=== PATIENT | male | born 1955 | race Caucasian/White ===

== ENCOUNTER 2017-05-05 11:19 | Emergency (ER) | payer OTHER, MEDICARE ==
[~2017-05-05] VITALS: Ht 175.3 cm; Wt 81.6 kg
[~2017-05-05 11:19] MED LIST: AMITRIPTYLINE50 MG PO; AMOXICILLIN500 MG PO; AUGMENTIN 875-1 EACH PO; BACTRIM DS 8001 TAB PO; BACTRIM DS TAB1 EACH PO; LIORESAL 10MG T10 MG PO; OXYCODONE HYDRO10 M1 PO; OXYCONTIN10 MG PO; TEMAZEPAM15 MG PO
--- NOTE | 2017-05-05 11:53 | ED GI/GU/ABDOMINAL COMPLAINT ---
History of Present Illness General Chief Complaint: General Adult Stated Complaint: BIBA FOR DIARRHEA, FLU-LIKE SYMPTOMS Source: patient, family, old records, EMS Exam Limitations: no limitations Allergies Coded Allergies: lactose (DIARRHEA 05/05/17) Reconcile Medications Oxycodone HCl (Oxycontin) 10 MG TAB.ER.12H 1 TAB PO BID PAIN (Reported) Oxycodone HCl 10 MG TABLET 0.5-1 TAB PO Q4-6 PRN PRN PAIN (Reported) Temazepam 15 MG CAPSULE 1 CAP PO QPM RESTLESS LEGS (Reported) Tizanidine HCl 4 MG TABLET 1-2 TAB PO QPM PAIN (Reported) Triage Note: 62 YEAR OLD MALE FROM HOME C/O DIARRHEA X1 WEEK AND GENERALIZED WEAKNESS THAT CAME ABOUT SUDDENLY THIS MORNING. PT REPORTS PAST MEDICAL HISTORY OF CROH[place] AND CHRONIC PAIN WITH MORPHINE PAIN PUMP D/T SEVERE OSTEOARTHRITIS. PT ARRIVES TO ED ALERT AND ORIENTED X3, CLEAR SPEECH, SHIVERING. DENIES CP/SOB. 20 GAUGE TO RFA PLACED BY MEDIC RUNNING NS ON ARRIVAL. Triage Nurses Notes Reviewed? yes Onset: Abrupt Duration: week(s):, constant, getting worse Timing: recent history Quality/Severity: cramping, moderate, sharpness Location: generalized abdomen Radiation: no radiation Activities at Onset: none No Modifying Factors: none HPI: 62-year-old male comes into emergency room for further evaluation of generalized abdominal pain as well as increase in mucus E bowel movements. Patient reports that he has a history of IBS. He's been experiencing abdominal pain symptoms for about 4 weeks. He denies any fever or vomiting. Reports that his bowel movements have been persistently mucousy and loose. Denies any blood. Denies any recent antibiotic use. No recent hospitalizations. Feels different from his IBS. Patient has a pain pump and on the right side due to chronic back aissatou and is seeN by pain management. He denies any changes in regards to his chronic pain. His pain medication has not been decreased recently. He also reported some associated dizziness with the symptoms. Denies any chest pain or shortness of breath. (Cecilio Monzon) Vital Signs & Intake/Output Vital Signs & Intake/Output Vital Signs Date Time Temp Pulse Resp B/P B/P Pulse O2 O2 Flow FiO2 Mean Ox Delivery Rate 05/05 1333 99.2 55 18 164/77 96 Room Air 05/05 1128 97.0 51 18 170/84 99 Room Air (Anitra THAPA,Saumya) Past History Travel History Traveled to [place] past 21 day No Medical History Any Pertinent Medical History? see below for history Neurological: NONE EENT: NONE Cardiovascular: NONE Respiratory: NONE Gastrointestinal: NONE Hepatic: NONE Renal: NONE Musculoskeletal: osteoarthritis Psychiatric: NONE Endocrine: NONE Blood Disorders: NONE Cancer(s): NONE INFORMATION SECURITY ARCHITECT/Reproductive: NONE Tetanus Vaccine: 03/15/15 Surgical History Surgical History: pain pump Psychosocial History What is your primary language Occitan Tobacco Use: Never used Family History Hx Contributory? No (Rishabh LEIVA,Cecilio) Review of Systems Review of Systems Constitutional: Reports: no symptoms. EENTM: Reports: no symptoms. Respiratory: Reports: no symptoms. Cardiovascular: Reports: no symptoms. GI: Reports: see HPI. Genitourinary: Reports: no symptoms. Musculoskeletal: Reports: no symptoms. Skin: Reports: no symptoms. Neurological/Psychological: Reports: no symptoms. Hematologic/Endocrine: Reports: no symptoms. Immunologic/Allergic: Reports: no symptoms. All Other Systems: Reviewed and Negative (Cecilio Monzon) Physical Exam Physical Exam General Appearance: alert, awake, mild distress Head: atraumatic, normal appearance Eyes: Bilateral: normal appearance. Ears, Nose, Throat, Mouth: hearing grossly normal, moist mucous membrane Neck: normal inspection Respiratory: normal breath sounds, no respiratory distress Cardiovascular: regular rate/rhythm Gastrointestinal: normal bowel sounds, soft, tenderness Back: decreased range of motion Extremities: limited range of motion Neurologic/Psych: awake, alert, oriented x 3 Skin: intact, normal color Core Measures ACS in differential dx? No Sepsis Present: No Sepsis Focused Exam Completed? No (Cecilio Monzon) Progress Differential Diagnosis: appendicitis, biliary colic, bowel obstruction, diverticulitis, gastritis, ischemic bowel, peptic ulcer, SBO, UTI/pyelo, c diff Diagnostic Imaging: Viewed by Me: CT Scan. Discussed w/RAD: CT Scan. Radiology Impression: PATIENT: JOSE CRUZ STOKES PRESENT AGE: 62 PATIENT ACCOUNT NO: [id number] : 54 LOCATION: [facility] ORDERING PHYSICIAN: Cecilio LEIVA SERVICE DATE: 05/05/17 EXAM TYPE : CAT - CT ABD & PELVIS W IV CONTRAST EXAMINATION: CT ABDOMEN AND PELVIS WITH CONTRAST CLINICAL INFORMATION: Abdominal pain COMPARISON: None TECHNIQUE: Multidetector volumetric imaging was performed of the abdomen and pelvis following IV administration of 95 mL of Optiray 320 intravenous contrast. Sagittal and coronal reformatted images were obtained on the technologist's workstation. DLP: 354.08 mGy-cm FINDINGS: LUNG BASES: The visualized lung bases are unremarkable. LIVER, GALLBLADDER, AND BILIARY TREE: The liver is normal in size, shape, and attenuation. No focal hepatic lesion or biliary ductal dilatation is present. Gallbladder is unremarkable. No edema around the gallbladder. No calcified gallstones. The extra hepatic CBD is mildly dilated to a diameter of 0.9 cm at the becky hepatis. No calcified stone in the bile ducts. PANCREAS: Pancreas is atrophic. No inflammation or mass of the pancreas. SPLEEN: Unremarkable. ADRENAL GLANDS: Unremarkable. KIDNEYS AND URETERS: The kidneys are normal in size, shape, and attenuation. No hydronephrosis, hydroureter, or calculi seen. No perinephric stranding. BLADDER: Unremarkable. GASTROINTESTINAL TRACT: The small and large bowel are unremarkable. The appendix is unremarkable. ABDOMINAL WALL: No significant hernia is appreciated. LYMPH NODES: Normal. VASCULAR: Atherosclerotic vascular wall calcifications of aorta and iliac vessels without aneurysm. PELVIC VISCERA: Unremarkable. OSSEOUS STRUCTURES: Degenerative spondylosis of spine with multilevel disc height narrowing and endplate spurring and facet joint arthrosis. IMPRESSION: No acute abnormality CT scan abdomen and pelvis. DICTATED BY: Malachi Merida MD DATE/TIME DICTATED:1454 PAPER COLORER:JAYCE DATE/TIME TRANSCRIBED:05/05/171454 CONFIDENTIAL, DO NOT COPY WITHOUT APPROPRIATE AUTHORIZATION. <Electronically signed in Other Vendor System> SIGNED BY: Malachi Merida MD 05/05/17 1505 Initial ED EKG: normal sinus rhythm, rate (50) (Cecilio Monzon) Plan of Care: Orders Procedure Date/time Status CULTURE,STOOL 05/05 1152 Active C.DIFFICILE 05/05 1152 Active URINALYSIS 05/05 1152 Complete TROPONIN LEVEL 05/05 1152 Complete LIPASE 05/05 1152 Complete LACTIC ACID 05/05 1152 Complete COMPREHENSIVE METABOLIC PANEL 05/05 1152 Complete CBC WITHOUT DIFFERENTIAL 05/05 1152 Complete AMYLASE 05/05 1152 Complete EKG 05/05 1152 Active Laboratory Tests 05/05/17 1452: Lactic Acid Cancelled 05/05/17 1309: Anion Gap 10, Estimated GFR > 60, BUN/Creatinine Ratio 8.6, Glucose 103 H, Lactic Acid 1.5, Calcium 9.5, Total Bilirubin 1.0, AST 21, ALT 30, Alkaline Phosphatase 68, Troponin I < 0.01, Total Protein 7.2, Albumin 4.4, Globulin 2.8, Albumin/Globulin Ratio 1.6, Amylase 55, Lipase 56 05/05/17 1226: CBC w Diff NO MAN DIFF REQ, RBC 4.69 L, MCV 80.7, MCH 27.3, RDW 14.2, MPV 9.5, Gran % 76.8 H, Lymphocytes % 18.0 L, Monocytes % 4.6, Eosinophils % 0.3, Basophils % 0.3, Absolute Granulocytes 3.7, Absolute Lymphocytes 0.9 L, Absolute Monocytes 0.2, Absolute Eosinophils 0, Absolute Basophils 0, PUBS MCHC 33.8 05/05/17 1210: Urine Color YEL, Urine Clarity CLEAR, Urine pH 6.5, Ur Specific [place] 1.010, Urine Protein NEG, Urine Ketones TRACE H, Urine Nitrite NEG, Urine Bilirubin NEG, Urine Urobilinogen 0.2, Ur Leukocyte Esterase NEG, Ur Microscopic EXAM NOT REQUIRED, Urine Hemoglobin NEG, Urine Glucose NEG Microbiology 05/05 1259 STOOL: Clostridium difficile Toxin A & B - RECD 05/05 1259 STOOL: Stool Culture - RECD (Anitra THAPA,Saumya) Departure Departure Disposition: HOME OR SELF CARE Condition: Stable Clinical Impression Primary Impression: Abdominal pain Referrals: Nahid Johns MD (PCP/Family) Additional Instructions: Follow-up with cloth bleaching supervisor provided. Return if any concerns worsening symptoms. Drink plenty of fluids. Rest. Please go over all results of today's visit with your primary care doctor. Contact your primary care doctor to let them know you were here in the emergency room. There may be nonspecific findings which may not be related to your visit today here in the emergency room but may require further evaluation and chronic monitoring by your primary care doctor. If you had a laceration today the chance of foreign body always remains. You should follow-up with your primary care doctor for recheck in 3-5 days for a wound check. If you had an x-ray done there is a chance that a fracture could have been missed on initial read and you should follow-up with your primary care doctor for repeat x-rays if symptoms persist. If your blood pressure was elevated here in the emergency room please have rechecked by saniaour primary care doctor within the next 48. If you were prescribed a narcotic here in the emergency room or any type of controlled substances you're not allowed to drive while taking this medication or operate any type of heavy machinery. Narcotics can make you feel lightheaded dizziness nausea and can cause constipation. You may need to olive picker a stool softener. Thank you for choosing [facility] emergency room. Please return to the emergency room immediately if you have any other concerns worsening of symptoms. Departure Forms: Customer Survey General Discharge Information Comments 05/05/2017 4:05:59 PM Patient clinically looks well. Patient is in no apparent distress. Patient is nontoxic-appearing. He feels better after IV fluids here in the emergency room. C. difficile and stool culture pending. These issues have been going on for about a month. Patient's heart rate is on lower side but he is asymptomatic and able to ambulate here with no difficulty and no dizziness. It is likely related to the narcotics that the patient takes and his pain pump. Case was discussed with Dr. manzo. (Cecilio Monzon) PA/RESEARCH ATTORNEY Co-Sign Statement Statement: ED Attending supervision documentation- [] I saw and evaluated the patient. I have also reviewed all the pertinent lab results and diagnostic results. I agree with the findings and the plan of care as documented in the PA's/RESEARCH ATTORNEY's documentation. [X] I have reviewed the ED Record and agree with the PA's/RESEARCH ATTORNEY's documentation. [] Additions or exceptions (if any) to the PAs/RESEARCH ATTORNEY's note and plan are summarized below: [] (Anitra THAPA,Saumya)
[2017-05-05] MEDS ORDERED: OXYCONTIN10 M1 PO (12:16)
[2017-05-05] MEDS ORDERED: OXYCODONE HCL10 M2 PO (12:17)
[2017-05-05] MEDS ORDERED: TIZANIDINE HCL4 M1 PO (12:17)
[2017-05-05] MEDS ORDERED: TEMAZEPAM15 M1 PO (12:18)
[2017-05-05 12:41] LABS: ABSOLUTE BASOPHIL COUNT 0 /CUMM (0.0-0.2); ABSOLUTE EOSINOPHIL COUNT 0 /CUMM (0.0-0.7); ABSOLUTE GRANULOCYTE CT 3.7 /CUMM (1.4-6.5); ABSOLUTE LYMPH COUNT 0.9 /CUMM (1.2-3.4); ABSOLUTE MONOCYTE COUNT 0.2 /CUMM (0.10-0.60); BASOPHIL % 0.3 % (0.0-2.0); EOSINOPHIL % 0.3 % (0-5); GRANULOCYTE % 76.8 % (42.2-75.2); HEMATOCRIT 37.8 % (42-52); MEAN CORPUSCULAR HGB 27.3 PG (27.0-31.0); MEAN CORPUSCULAR HGB CONC 33.8 G/DL (33.0-37.0); MEAN CORPUSCULAR VOLUME 80.7 FL (80.0-94.0); MEAN PLATELET VOLUME 9.5 FL (7.4-10.4); PLATELET COUNT 257 /CUMM (130-400); RBC DISTRIBUTION WIDTH 14.2 % (11.5-14.5); RED BLOOD CELL CT 4.69 /CUMM (4.70-6.10); WHITE BLOOD CELL COUNT 4.9 /CUMM (4.8-10.8)
--- NOTE | 2017-05-05 15:05 | CT SCAN REPORT ---
EXAMINATION: CT ABDOMEN AND PELVIS WITH CONTRAST CLINICAL INFORMATION: Abdominal pain COMPARISON: None TECHNIQUE: Multidetector volumetric imaging was performed of the abdomen and pelvis following IV administration of 95 mL of Optiray 320 intravenous contrast. Sagittal and coronal reformatted images were obtained on the technologist's workstation. DLP: 354.08 mGy-cm FINDINGS: LUNG BASES: The visualized lung bases are unremarkable. LIVER, GALLBLADDER, AND BILIARY TREE: The liver is normal in size, shape, and attenuation. No focal hepatic lesion or biliary ductal dilatation is present. Gallbladder is unremarkable. No edema around the gallbladder. No calcified gallstones. The extra hepatic CBD is mildly dilated to a diameter of 0.9 cm at the becky hepatis. No calcified stone in the bile ducts. PANCREAS: Pancreas is atrophic. No inflammation or mass of the pancreas. SPLEEN: Unremarkable. ADRENAL GLANDS: Unremarkable. KIDNEYS AND URETERS: The kidneys are normal in size, shape, and attenuation. No hydronephrosis, hydroureter, or calculi seen. No perinephric stranding. BLADDER: Unremarkable. GASTROINTESTINAL TRACT: The small and large bowel are unremarkable. The appendix is unremarkable. ABDOMINAL WALL: No significant hernia is appreciated. LYMPH NODES: Normal. VASCULAR: Atherosclerotic vascular wall calcifications of aorta and iliac vessels without aneurysm. PELVIC VISCERA: Unremarkable. OSSEOUS STRUCTURES: Degenerative spondylosis of spine with multilevel disc height narrowing and endplate spurring and facet joint arthrosis. IMPRESSION: No acute abnormality CT scan abdomen and pelvis.
[2017-05-05 16:36] VITALS: BP 146/78
== END 2017-05-05 16:36 ==
LOC: ERH 11:19
PROVIDERS: Physician Assistant Medical
DX: R10.84 Generalized abdominal pain (principal)
CPT/HCPCS: 74177; 81003; 87045; 93005; 93010

== ENCOUNTER 2017-05-30 08:31 | Inpatient (IN) | payer OTHER, MEDICARE ==
[~2017-05-30] VITALS: Ht 175.3 cm; Wt 83.9 kg
[~2017-05-30 08:31] MED LIST changes: +OXYCODONE HCL10 M2 PO; +OXYCONTIN10 M1 PO; +TEMAZEPAM15 M1 PO; +TIZANIDINE HCL4 M1 PO
--- NOTE | 2017-05-30 09:35 | ED GENERAL ADULT ---
History of Present Illness General Chief Complaint: General Adult Stated Complaint: INFECTION TO FACE Source: patient, family Exam Limitations: no limitations Vital Signs & Intake/Output Vital Signs & Intake/Output Vital Signs Date Time Temp Pulse Resp B/P B/P Pulse O2 O2 Flow FiO2 Mean Ox Delivery Rate 05/30 1201 80 137/72 05/30 1023 Room Air Room Air 05/30 1011 99.0 76 22 170/84 99 Room Air 05/30 0836 98.6 66 18 168/70 98 Room Air Allergies Coded Allergies: lactose (DIARRHEA 05/05/17) Reconcile Medications [MORPHINE/CLONIDINE] PUMP (Reported) Oxycodone HCl (Oxycontin) 10 MG TAB.ER.12H 1 TAB PO BID PAIN (Reported) Oxycodone HCl 10 MG TABLET 1 TAB PO Q4H PAIN (Reported) Temazepam 15 MG CAPSULE 1 CAP PO QPM RESTLESS LEGS (Reported) Tizanidine HCl 4 MG TABLET 1-2 TAB PO QPM PAIN (Reported) Triage Note: 62 YO M[facility] FOR SWELLING/REDNESS OF NOSE X2 DAYS. STATES HE THINKS ITS STARTED WITH AN INGROWN HAIR, NOSE NOTED TO BE VERY SWOLLEN AND RED. AFEBRILE. PT STATES HE SEES THE PAIN CLINIC FOR ARTHIRITIS AND HAS A MORPHINE PUMP THAT ISNT HELPING WITH HIS PAIN. Triage Nurses Notes Reviewed? yes Onset: Gradual Duration: day(s): (2-3) Timing: no prior history Injury Environment: home Severity: severe Severity Numbers: 9 Modifying Factors: Improves With: cold therapy. Worsens With: movement, other (palpation). HPI: Patient is a 62-year-old male with history of chronic pain presenting to the emergency department with chief complaint of redness swelling over his nose worsening over the past 2-3 days. Positive associated fevers and chills. Has nausea without vomiting. Patient reports that symptoms started after he tried to pluck his nose hairs, unsure if he accidentally cut his skin in his left ear. Symptoms worse over the left side. He has noticed swelling extending up towards his eyes. He also noticed purulent drainage from the left knee or over the past 1-2 days. Has been applying ice without relief. No history of similar symptoms in the past. Denies chest pain palpitations or shortness of breath. Pain is achy and throbbing, describes it also as pressure. (Tanja Thompson) Past History Travel History Traveled to [place] past 21 day No Medical History Any Pertinent Medical History? 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 No (Tanja Thompson) Review of Systems Review of Systems Constitutional: Reports: no symptoms. Comments Review of systems: See HPI, All other systems negative. Constitutional, no weight loss HEENT: No visual changes no sore throat no congestion Cardiovascular: No chest pain ,palpitation , orthopnea or ankle swelling Skin, no jaundice Respiratory: No dyspnea cough sputum or hemoptysis GI: no vomiting : No dysuria No hematuria Muscle skeletal: no back pain, no neck pain, Neurologic: No numbness no confusion Psych: No stress anxiety or depression,. Heme/endocrine: No bruising no bleeding no polyuria or polydipsia Immunology: No splenectomy or history of AIDS (Tanja Thompson) Physical Exam Physical Exam General Appearance: well developed/nourished, no apparent distress, alert, awake , comfortable Comments: Well-developed well-nourished person in no acute distress HEENT: extraocular motion intact, no nystagmus. Pupils equally round and reactive to light and accommodation. Pupils approximately 3 mm bilaterally. Nose is extensively erythematous and edematous. Edema more prominent on the left side of the nasal bridge, purulent drainage noted in the left nares. Warm to palpation. Erythema extends up towards the left orbit. Significant tenderness to palpation over entire nose. External auditory canal and Tympanic membranes clear. Pharynx normal. No swelling or edema. Neck: Supple, no lymphadenopathy Back: Nontender, no CVA tenderness. Full range of motion Cardiovascular: Regular rate and rhythms no murmurs rubs or gallops, normal JVP Respiratory: No respiratory distress.breath sounds clear to auscultation bilaterally Extremity: No edema Neuro: Alert oriented x3 Skin:see heent exam, otherwise No appreciable rash on exposed skin, skin is warm and dry. Psych: Mood and affect is normal, memory and judgment is normal. Core Measures ACS in differential dx? No CVA/TIA Diagnosis: No Sepsis Present: No Sepsis Focused Exam Completed? No (Hanh LEIVA,Tanja) Progress Differential Diagnoses I considered the following diagnoses in my evaluation of the patient: Cellulitis, abscess, sinusitis, sepsis, Plan of Care: Orders Procedure Date/time Status Regular Diet 05/30 D Active ACTIVE SURVEILLANCE NARES 05/30 1416 Active Add-on Test (ER Only) 05/30 1341 Active Patient Data 05/30 1321 Active OXYGEN SETUP (GEN) 05/30 1242 Active Saline Lock 05/30 1242 Active Admit to inpatient 05/30 1242 Active Vital Signs 05/30 1242 Active Activity/Ambulation 05/30 1242 Active Code Status 05/30 1242 Active Intake & Output 05/30 1022 Active BLOOD CULTURE 05/30 0934 Active LACTIC ACID 05/30 0934 Complete COMPREHENSIVE METABOLIC PANEL 05/30 0934 Complete CBC WITHOUT DIFFERENTIAL 05/30 0934 Complete DIRECT BILIRUBIN 05/30 0930 Complete Current Medications Sig/Tarun Start time Last Medication Dose Stop Time Status Admin Temazepam 15 MG QPM 05/30 2200 AC (Restoril) Tizanidine HCl 4 MG QPM 05/30 2200 AC (Zanaflex) Ampicillin Sodium/ 1,500 MG Q6 05/30 1800 AC Sulbactam Sodium (Unasyn) Sodium Chloride 100 ML (Normal Saline 0.9%) Acetaminophen 650 MG Q6P PRN 05/30 1345 AC (Tylenol) Ketorolac 30 MG Q8 PRN 05/30 1345 AC Tromethamine (Toradol) Laboratory Tests 05/30/17 1234: Lactic Acid Cancelled 05/30/17 0930: Anion Gap 17 H, Estimated GFR > 60, BUN/Creatinine Ratio 11.4, Glucose 106 H, Lactic Acid 0.9, Calcium 10.4 H, Total Bilirubin 1.6 H, Direct Bilirubin 0.7 H, AST 34, ALT 40, Alkaline Phosphatase 97, Total Protein 8.1, Albumin 4.7, Globulin 3.4, Albumin/Globulin Ratio 1.4, CBC w Diff NO MAN DIFF REQ, RBC 4.80, MCV 81.4, MCH 26.5 L, MCHC 32.5 L, RDW 13.8, MPV 9.3, Gran % 81.4 H, Lymphocytes % 8.4 L, Monocytes % 9.6 H, Eosinophils % 0.4, Basophils % 0.2, Absolute Granulocytes 9.0 H, Absolute Lymphocytes 0.9 L, Absolute Monocytes 1.1 H, Absolute Eosinophils 0, Absolute Basophils 0 Microbiology 05/30 1416 UPPER RESP: Surveillance Culture - ORD 05/30 0850 BLOOD: Blood Culture - RECD 05/30 929 BLOOD: Blood Culture - RECD Is feeling fairly improved after IV Dilaudid. Patient informed of all imaging results and laboratory results. Due to location of cellulitis and the fact that it spreading while patient in the emergency department. Patient will be admitted for cellulitis and abscess. Attempted to page ENT, no call back. Diagnostic Imaging: Viewed by Me: CT Scan. Discussed w/RAD: CT Scan. Radiology Impression: PATIENT: JOSE CRUZ STOKES PRESENT AGE: 62 PATIENT ACCOUNT NO: [id number] : 54 LOCATION: ER ORDERING PHYSICIAN: Tanja LEIVA SERVICE DATE: 05/30/17 EXAM TYPE: CAT - CT MAXILLOFACIAL W CONT EXAMINATION: CT MAXILLOFACIAL WITH CONTRAST CLINICAL INFORMATION: 62-year-old man with edema and erythema. Evaluate for nasal abscess. COMPARISON: None TECHNIQUE: Multidetector helical imaging was performed in the axial plane with generation of coronal and sagittal reformatted images. The examination was performed after the administration of 95 mL of Optiray 320 intravenous contrast DLP: 562 mGy-cm FINDINGS: There is a 1.5 x 2 cm multilocular thick walled and rim-enhancing fluid collection seen along the lower aspect of the left nose extending slightly into the nare, most consistent with a small superficial abscess. There is associated soft tissue swelling extending along the left nasal bridge towards the medial canthus. There is no associated osseous abnormality in the adjacent bone. Mild mucosal thickening is noted in the ethmoid air cells. Visualized portions of the brain are unremarkable. IMPRESSION: Small superficial left nasal abscess. DICTATED BY: Honey Mckenzie MD DATE/TIME DICTATED:05/30/171149 METAL DIE FINISHER:JAYCE DATE/TIME TRANSCRIBED:05/30/171149 CONFIDENTIAL, DO NOT COPY WITHOUT APPROPRIATE AUTHORIZATION. <Electronically signed in Other Vendor System> SIGNED BY: Honey Mckenzie MD 05/30/17 1202 Initial ED EKG: none (Tanja Thompson) Departure Departure Time of Disposition: 1306 Disposition: STILL A PATIENT Condition: Stable Clinical Impression Primary Impression: Nasal abscess Secondary Impressions: Cellulitis Qualifiers: Site of cellulitis: face Qualified Code: L03.211 - Cellulitis of face Referrals: Nahid Johns MD (PCP/Family) Departure Forms: Customer Survey General Discharge Information Admission Note Spoke With: Jayy Mcdonald MD Documentation of Exam: Documentation of any treatments & extenuating circumstances including Concerns Regarding Discharge (functional status, medication knowledge or non-compliance, living conditions, etc.) that warrant an admission rather than observation: Patient requiring ENT consultation for potential drainage of nasal abscess, IV antibiotics, IV pain control, IV hydration. Discharge at this time is medically harmful due to likelihood of worsening cellulitis. trend WBC. (Tanja Thompson) PA/SURGICAL ELASTIC KNITTER HAND FRAME Co-Sign Statement Statement: ED Attending supervision documentation- x I saw and evaluated the patient. I have also reviewed all the pertinent lab results and diagnostic results. I agree with the findings and the plan of care as documented in the PA's/SURGICAL ELASTIC KNITTER HAND FRAME's documentation. Facial abscess in danger zone with rapid progression [] I have reviewed the ED Record and agree with the PA's/SURGICAL ELASTIC KNITTER HAND FRAME's documentation. [] Additions or exceptions (if any) to the PAs/SURGICAL ELASTIC KNITTER HAND FRAME's note and plan are summarized below: [] (Sylvia THAPA,Damon) Critical Care Note Critical Care Note Critical Care Time: non-applicable (Tanja Thompson)
[2017-05-30 10:15] LABS: ABSOLUTE BASOPHIL COUNT 0 /CUMM (0.0-0.2); ABSOLUTE EOSINOPHIL COUNT 0 /CUMM (0.0-0.7); ABSOLUTE LYMPH COUNT 0.9 /CUMM (1.2-3.4); ABSOLUTE MONOCYTE COUNT 1.1 /CUMM (0.10-0.60); BASOPHIL % 0.2 % (0.0-2.0); EOSINOPHIL % 0.4 % (0-5); GRANULOCYTE % 81.4 % (42.2-75.2); HEMATOCRIT 39.1 % (42-52); MEAN CORPUSCULAR HGB 26.5 PG (27.0-31.0); MEAN CORPUSCULAR HGB CONC 32.5 G/DL (33.0-37.0); MEAN CORPUSCULAR VOLUME 81.4 FL (80.0-94.0); MEAN PLATELET VOLUME 9.3 FL (7.4-10.4); PLATELET COUNT 259 /CUMM (130-400); RBC DISTRIBUTION WIDTH 13.8 % (11.5-14.5); WHITE BLOOD CELL COUNT 11.1 /CUMM (4.8-10.8)
--- NOTE | 2017-05-30 12:02 | CT SCAN REPORT ---
EXAMINATION: CT MAXILLOFACIAL WITH CONTRAST CLINICAL INFORMATION: 62-year-old man with edema and erythema. Evaluate for nasal abscess. COMPARISON: None TECHNIQUE: Multidetector helical imaging was performed in the axial plane with generation of coronal and sagittal reformatted images. The examination was performed after the administration of 95 mL of Optiray 320 intravenous contrast DLP: 562 mGy-cm FINDINGS: There is a 1.5 x 2 cm multilocular thick walled and rim-enhancing fluid collection seen along the lower aspect of the left nose extending slightly into the nare, most consistent with a small superficial abscess. There is associated soft tissue swelling extending along the left nasal bridge towards the medial canthus. There is no associated osseous abnormality in the adjacent bone. Mild mucosal thickening is noted in the ethmoid air cells. Visualized portions of the brain are unremarkable. IMPRESSION: Small superficial left nasal abscess.
[2017-05-30] MEDS ORDERED: OXYCODONE HCL10 M2 PO (12:28)
[2017-05-30] MEDS ORDERED: MORPHINE (12:31)
[2017-05-30] MEDS ORDERED: CLONIDINE (12:31)
--- NOTE | 2017-05-30 13:28 | History & Physical ---
Maddy Santamaria 05/30/17 1327: General Information and HPI MD Statement: I have seen and personally examined JOSE CRUZ STOKES and documented this H&P. The patient is a 62 year old M who presented with a patient stated chief complaint of [nose swelling]. Source of Information: patient Exam Limitations: no limitations History of Present Illness: Patient is 62 year old male with PMH of osteoarthritis came with a chief complain of swelling and redness in nose since past 3 days. Patient reports that the pain and swelling started gradually and has been progressively worsening. Patient states that 3 days ago, he plucked aleft nose hair and it started as a little swelling after that but since this morning, it seemed like his nose was going to explode. Patient reports of chills, no recorded fever. He has been taking OTC tylenol for his pain. Patient also reports of greenish discharge from the nose since yesterday, intermittent, (patient can't smell it well). Patient also reports of headache, achy in nature, 6/10, non radiating. He has left ear pain since yesterday, it is constant in nature, 5/10. Patient denies any Chest pain, dizziness, difficulty breathing, abdominal pain. Patient has a morphine pump on anterior adomen spine arthritis. Allergies/Medications Allergies: Coded Allergies: lactose (DIARRHEA 05/05/17) Home Med list [MORPHINE/CLONIDINE] PUMP (Reported) Oxycodone HCl (Oxycontin) 10 MG TAB.ER.12H 1 TAB PO BID PAIN (Reported) Oxycodone HCl 10 MG TABLET 1 TAB PO Q4H PAIN (Reported) Temazepam 15 MG CAPSULE 1 CAP PO QPM RESTLESS LEGS (Reported) Tizanidine HCl 4 MG TABLET 1-2 TAB PO QPM PAIN (Reported) Past History Travel History Traveled to [place] past 21 day No Medical History Neurological: NONE EENT: NONE Cardiovascular: NONE Respiratory: NONE Gastrointestinal: NONE Hepatic: NONE Renal: NONE Musculoskeletal: osteoarthritis Psychiatric: NONE Endocrine: NONE Blood Disorders: NONE Cancer(s): NONE 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 Home Who Do You Live With? partner Functional Ability ADLs Independent: dressing, eating, toileting, bathing. Ambulation: cane Review of Systems Review of Systems Constitutional: Reports: see HPI, chills. Exam & Diagnostic Data Last 24 Hrs of Vital Signs/I&O Vital Signs Date Time Temp Pulse Resp B/P B/P Pulse O2 O2 Flow FiO2 Mean Ox Delivery Rate 05/30 1201 80 137/72 05/30 1023 Room Air Room Air 05/30 1011 99.0 76 22 170/84 99 Room Air 05/30 0836 98.6 66 18 168/70 98 Room Air Intake & Output 05/30 1600 05/30 0800 05/30 0000 Intake Total 1100 Output Total Balance 1100 Intake, IV 1100 Patient 83.915 kg Weight Weight Reported by Patient Measurement Method Physical Exam General Appearance Alert, Oriented X3, Cooperative, No Acute Distress Skin No Rashes, No Breakdown Skin Temp/Moisture Exam: Warm/Dry Sepsis Skin Exam (color): Normal for Ethnicity HEENT Atraumatic, nose looks red and swollen, tender, throbbing Neck Supple, No JVD Cardiovascular Regular Rate, Normal S1, Normal S2 Lungs Clear to Auscultation, Normal Air Movement Abdomen Normal Bowel Sounds, Soft, No Tenderness Neurological Normal Speech Extremities No Clubbing, No Cyanosis, No Edema Last 24 Hrs of Labs/Rolan: Laboratory Tests 05/30/17 1234: Lactic Acid Cancelled 05/30/17 09: Anion Gap 17 H, Estimated GFR > 60, BUN/Creatinine Ratio 11.4, Glucose 106 H, Lactic Acid 0.9, Calcium 10.4 H, Total Bilirubin 1.6 H, Direct Bilirubin 0.7 H, AST 34, ALT 40, Alkaline Phosphatase 97, Total Protein 8.1, Albumin 4.7, Globulin 3.4, Albumin/Globulin Ratio 1.4, CBC w Diff NO MAN DIFF REQ, RBC 4.80, MCV 81.4, MCH 26.5 L, MCHC 32.5 L, RDW 13.8, MPV 9.3, Gran % 81.4 H, Lymphocytes % 8.4 L, Monocytes % 9.6 H, Eosinophils % 0.4, Basophils % 0.2, Absolute Granulocytes 9.0 H, Absolute Lymphocytes 0.9 L, Absolute Monocytes 1.1 H, Absolute Eosinophils 0, Absolute Basophils 0 Microbiology 05/30 1608 UPPER RESP: Surveillance Culture - RECD 05/30 0950 BLOOD: Blood Culture - RECD 01/27 0930 BLOOD: Blood Culture - RECD Assessment/Plan Assessment: Patient is 62 year old male with PMH of osteoarthritis came with a chief complain of swelling and redness in nose since past 3 days. Patient reports that the pain and swelling started gradually and has been progressively worsening. Patient states that 3 days ago, he plucked aleft nose hair and it started as a little swelling after that but since this morning, it seemed like his nose was going to explode. Patient reports of chills, no recorded fever. He has been taking OTC tylenol for his pain. Patient also reports of greenish discharge from the nose since yesterday, intermittent, (patient can't smell it well). Patient also reports of headache, achy in nature, 10/11, non radiating. He has left ear pain since yesterday, it is constant in nature, 09/10. Assessmenta nd plan Will admit patient to Gen med, IV unasyn, pain control. 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 continued home meds for restless leg syndrome. Warm compresses DVT; Levonox Code- Full code As Ranked By This Provider Problem List: 1. Nasal abscess Core Measures/Misc (01/18) Acute Coronary Syndrome ACS Diagnosis: No Congestive Heart Failure Congestive Heart Failure Diagnosis No Cerebrovascular Accident CVA/TIA Diagnosis: No VTE (View Protocol) VTE Risk Factors Age>40 No Mechanical VTE Prophylaxis d/t N/A MechProphylax Ordered No VTE Pharm Prophylaxis d/t NA PharmProphylax ordered Sepsis (View protocol) Sepsis Present: No Jayy Mcdonald MD 05/30/17 1734: Attending MD Review Statement Attending Statement Attending MD Statement: examined this patient, agreed w/resident/PA/COLLEGE TEACHER, reviewed EMR data (avail), reviewed images, amended to note Attending Assessment/Plan: Problems: -Nasal vestibule cellulitis/abscess -Chronic pain/restless leg -Sleep disturbance Plan: -Admit general medicine -Blood cultures -Ampicillin/sulbactam -Continue maintenance medications -ENT consultation
--- NOTE | 2017-05-30 15:25 | Cons- Ear,Nose&Throat ---
General Information and HPI Consulting Request Date of Consult: 05/30/17 Requested By: Tamara THAPA,Jayy Steven Reason for Consult: Progressive nasal swelling with erythema, tenderness with suspected cellulitis versus abscess Source of Information: patient, family Exam Limitations: no limitations History of Present Illness: Patient presents with a three-day history of progressive swelling of the external nose and the nasal vestibule region. There is a history that he pulled out a nasal hair prior to the development of discomfort, erythema, swelling of the tip of his nose. He reports some chills but no documented fever Allergies/Medications Allergies: Coded Allergies: lactose (DIARRHEA 05/05/17) Home Med List: [MORPHINE/CLONIDINE] PUMP (Reported) Oxycodone HCl (Oxycontin) 10 MG TAB.ER.12H 1 TAB PO BID PAIN (Reported) Oxycodone HCl 10 MG TABLET 1 TAB PO Q4H PAIN (Reported) Temazepam 15 MG CAPSULE 1 CAP PO QPM RESTLESS LEGS (Reported) Tizanidine HCl 4 MG TABLET 1-2 TAB PO QPM PAIN (Reported) Current Medications: Current Medications Sig/Tarun Start time Last Medication Dose Route Stop Time Status Admin Acetaminophen 650 MG Q6P PRN 05/30 1345 AC PO Ampicillin Sodium/ 1,500 MG Q6 05/30 1800 DC Sulbactam Sodium IV Sodium Chloride 100 ML Ampicillin Sodium/ 1,500 MG Q6 05/30 1800 AC Sulbactam Sodium IV Sodium Chloride 100 ML Ampicillin Sodium/ 0 .STK-MED ONE 05/30 0953 DC Sulbactam Sodium .ROUTE Ampicillin Sodium/ 3,000 MG ONCE ONE 05/30 0945 DC 05/30 Sulbactam Sodium IV 05/30 1014 0956 Sodium Chloride 100 ML Hydromorphone HCl 0 .STK-MED ONE 05/30 1235 DC .ROUTE Hydromorphone HCl 1 MG ONCE ONE 05/30 1230 DC 05/30 IV 05/30 1231 1235 Hydromorphone HCl 0 .STK-MED ONE 05/30 1003 DC .ROUTE Hydromorphone HCl 1 MG ONCE ONE 05/30 1000 DC 05/30 IV 05/30 1001 1022 Ketorolac 30 MG Q8 PRN 05/30 1345 AC Tromethamine IM Ketorolac 0 .STK-MED ONE 05/30 1234 DC Tromethamine .ROUTE Ketorolac 30 MG ONCE ONE 05/30 1230 DC 05/30 Tromethamine IV 05/30 1231 1235 Sodium Chloride 1,000 ML .Q1H 05/30 0945 DC 05/30 IV 05/30 1044 1022 Temazepam 15 MG QPM 05/30 2199 AC PO Tizanidine HCl 4 MG QPM 05/30 2199 AC PO Past History Medical History Neurological: NONE EENT: NONE Cardiovascular: NONE Respiratory: NONE Gastrointestinal: NONE Hepatic: NONE Renal: NONE Musculoskeletal: osteoarthritis Psychiatric: NONE Endocrine: NONE Blood Disorders: NONE Cancer(s): NONE 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 Home Who Do You Live With? partner Functional Ability ADLs Independent: dressing, eating, toileting, bathing. Ambulation: cane Exam & Diagnostic Data Vital Signs and I&O Vital Signs Date Time Temp Pulse Resp B/P B/P Pulse O2 O2 Flow FiO2 Mean Ox Delivery Rate 05/30 1500 98.2 88 22 138/65 96 Room Air 05/30 1201 80 137/72 05/30 1023 Room Air Room Air 05/30 1011 99.0 76 22 170/84 99 Room Air 05/30 0836 98.6 66 18 168/70 98 Room Air Intake & Output 05/30 1600 05/30 0800 05/30 0000 05/29 1600 05/29 0800 05/29 0000 Intake Total 1100 Output Total Balance 1100 Intake, IV 1100 Patient 185 lb Weight Weight Reported by Patient Measurement Method Examination at the bedside in the emergency room reveals that he is awake, alert and in no acute distress. He is accompanied by his significant other. Vital signs reveal low-grade temperature elevation. Head and neck examination reveals the nasal tip to be quite swollen, erythematous and tender the nasal vestibule reveals slight crusting. This swelling extends to the maxillary area especially on the left There is no evidence of trismus. Eyes revealed pupils to be equal round and reactive to light The oropharynx reveals that he is edentulous. There is no evidence of erythema or any lesions in the oropharynx. The neck is supple. No adenopathy noted. Assessment/Plan Assessment/Plan Impression: Nasal vestibulitis with secondary facial cellulitis. At this time there is no evidence of a loculated area to easily drain Recommend: Parenteral antibiotics to cover for potential staph infection Warm compresses 3 times a day Head elevation Analgesics as needed Will monitor progression of infection, however, suspect control will be obtained with parenteral antibiotics that could be switched to oral antibiotics upon discharge Consult Acknowledgment - Thank you for your consult request.
[2017-05-30 16:49] VITALS: BP 132/86
--- NOTE | 2017-05-30 17:33 | Admission Certification ---
Admission Certification Certification Statement - As attending physician, I certify that at the time of - admission, based on clinical presentation, severity of - symptoms, need for further diagnostic testing and - therapeutic interventions, and risk of adverse outcomes - without in-hospital treatment, in my clinical assessment, - this patient requires an acute hospital stay for a minimum - of two nights or longer. I have also considered psychsocial - factors such as support system, advanced age, financial - issues, cognitive issues, and failed out-patient treatments, - past re-admission history, safety of patient, and lack of - compliance as applicable. Specific rationale supporting this admission is: Treatment of facial cellulitis/nasal vestibule abscess with parenteral antibiotics
[2017-05-30 21:28] VITALS: BP 136/72
[2017-05-31 06:14] VITALS: BP 144/68
--- NOTE | 2017-05-31 07:34 | PN- Housestaff ---
CorneliusBall Ground 05/31/17 0730: Subjective Follow-up For: Nasal vestibulitis Possible nasal abscess Subjective: Patient had max temperature 100.2 last night. Seen and examined this morning. Patient denied any chest pain, short of breath, nausea, vomiting, abdominal pain and dysuria. He reported havingpain 12/11. He also reported that this morning there was greenish color pus coming out of his nose. His nose is red and swollen. Review of Systems Constitutional: Reports: no symptoms. EENTM: Reports: see HPI. Cardiovascular: Reports: no symptoms. Respiratory: Reports: no symptoms. Gastrointestinal: Reports: no symptoms. Genitourinary: Reports: no symptoms. Musculoskeletal: Reports: no symptoms. Neurological/Psychological: Reports: no symptoms. Objective Last 24 Hrs of Vital Signs/I&O Vital Signs Date Time Temp Pulse Resp B/P B/P Pulse O2 O2 Flow FiO2 Mean Ox Delivery Rate 05/31 0614 98.9 56 20 144/68 94 05/30 2128 100.2 53 18 136/72 98 Room Air 05/30 1649 100.0 55 18 132/86 98 Room Air 05/30 1500 98.2 88 22 138/65 96 Room Air 05/30 1201 80 137/72 05/30 1023 Room Air Room Air 05/30 1011 99.0 76 22 170/84 99 Room Air Intake & Output 05/31 1600 05/31 0800 05/31 0000 Intake Total 780 920 Output Total Balance 780 920 Intake, IV 300 120 Intake, Oral 480 800 Patient 185 lb Weight Weight Reported by Patient Measurement Method Physical Exam General Appearance: Alert, Oriented X3, Cooperative Skin Temp/Moisture Exam: Warm/Dry Sepsis Skin Exam (color): Normal for Ethnicity HEENT: Atraumatic, PERRLA, EOMI Neck: Supple Cardiovascular: Normal S1, Normal S2 Lungs: Clear to Auscultation Abdomen: Soft, No Tenderness Neurological: Normal Speech, Strength at 5/5 X4 Ext, Normal Tone, Sensation Intact Extremities: No Edema Assessment/Plan Assessment: 62 year old male with PMH of osteoarthritis came with a chief complain of swelling and redness in nose since past 3 days. Patient reports that the pain and swelling started gradually and has been progressively worsening. Patient states that 3 days ago, he plucked aleft nose hair and it started as a little swelling after that but since this morning, it seemed like his nose was going to explode. We will admit the patient on general medicine floor to treat for nasal vestibulitis. Nasal vestibulitis: -Possibly nasal abscess. -Warm compressions -Head elevation -We will continue IV Unasyn day 2. -We will follow ENT recommendations -Pain management History of restless leg syndrome and osteoarthritis; -Continue home medications DVT prophylaxis: Mechanical and Lovenox CODE STATUS: Full code Problem List: 1. Cellulitis and abscess Pain Ratin Pain Location: nose Pain Goal: Pain 4 or less Pain Plan: pain pathway Tomorrow's Labs & Rationales: cbc/bep Tamara THAPA,Jayy 05/31/17 1455: Attending MD Review Statement Attending Statement Attending MD Statement: examined this patient, agreed w/resident/PA/ORACLE SCM CONSULTANT, reviewed EMR data (avail), amended to note Attending Assessment/Plan: Mr. Jack noted 2 episodes of spontaneous drainage of his abscess earlier this morning. He otherwise has no complaints. Maximum temperature was 100.2. His remaining vital signs are stable area He is in no acute distress. There is erythema of the nose primarily in the region of the left near and there is a packing present. Pulmonary and cardiac exams are benign. His WBC are now 10,800. Blood cultures remain negative. We are continuing to treat his nasal cellulitis/abscess with ampicillin/ sulbactam. We are continuing his maintenance medications.
[2017-05-31 08:40] LABS: ABSOLUTE BASOPHIL COUNT 0 /CUMM (0.0-0.2); ABSOLUTE EOSINOPHIL COUNT 0 /CUMM (0.0-0.7); ABSOLUTE LYMPH COUNT 0.9 /CUMM (1.2-3.4); RED BLOOD CELL CT 3.97 /CUMM (4.70-6.10)
[2017-05-31 08:46] LABS: ABSOLUTE GRANULOCYTE CT 8.6 /CUMM (1.4-6.5); ABSOLUTE MONOCYTE COUNT 1.2 /CUMM (0.10-0.60); BASOPHIL % 0.2 % (0.0-2.0); EOSINOPHIL % 0.2 % (0-5); GRANULOCYTE % 79.7 % (42.2-75.2); MEAN CORPUSCULAR HGB 27.2 PG (27.0-31.0); MEAN CORPUSCULAR HGB CONC 33.2 G/DL (33.0-37.0); MEAN CORPUSCULAR VOLUME 81.7 FL (80.0-94.0); MEAN PLATELET VOLUME 9.2 FL (7.4-10.4); PLATELET COUNT 212 /CUMM (130-400); RBC DISTRIBUTION WIDTH 13.7 % (11.5-14.5); WHITE BLOOD CELL COUNT 10.8 /CUMM (4.8-10.8)
[2017-05-31 08:51] LABS: HEMATOCRIT 32.4 % (42-52)
[2017-05-31 14:39] VITALS: BP 140/76
[2017-05-31 21:41] VITALS: BP 128/80
[2017-06-01 06:33] VITALS: BP 146/80
--- NOTE | 2017-06-01 07:25 | PN- Housestaff ---
Subjective Follow-up For: Nasal abscess Nasal vestibulitis Subjective: No overnight events. Patient remained afebrile lipase and examined this morning. Patient denied any chest pain, short of breath, nausea, vomiting, fever, abdominal pain dysuria. Patient having erythema and swelling of the nose and also takes extended towards the right cheek. His headache is under control with pain medication. Patient reported that he has is still draining from the nose. We will discharge the patient on by mouth antibiotics to complete 10 days course of antibiotics. He will see ENT doctor and primary care physician in one week. Review of Systems Constitutional: Reports: no symptoms. EENTM: Reports: see HPI. Cardiovascular: Reports: no symptoms. Respiratory: Reports: no symptoms. Gastrointestinal: Reports: no symptoms. Genitourinary: Reports: no symptoms. Neurological/Psychological: Reports: no symptoms. Objective Last 24 Hrs of Vital Signs/I&O Vital Signs Date Time Temp Pulse Resp B/P B/P Pulse O2 O2 Flow FiO2 Mean Ox Delivery Rate 06/01 0643 60 06/01 0633 98.2 47 20 146/80 99 05/31 2141 98.5 57 18 128/80 97 Room Air 05/31 1439 97.9 52 20 140/76 97 Room Air Intake & Output 06/01 1600 06/01 0800 06/01 0000 Intake Total 100 1000 Output Total Balance 100 1000 Intake, IV 100 Intake, Oral 1000 Physical Exam General Appearance: Alert, Oriented X3, Cooperative Skin Temp/Moisture Exam: Warm/Dry Sepsis Skin Exam (color): Normal for Ethnicity HEENT: Atraumatic, PERRLA, EOMI Neck: Supple Cardiovascular: Normal S1, Normal S2 Lungs: Clear to Auscultation Abdomen: Soft, No Tenderness Neurological: Normal Speech, Strength at 5/5 X4 Ext, Normal Tone, Sensation Intact Extremities: No Edema Assessment/Plan Assessment: 62 year old male with PMH of osteoarthritis came with a chief complain of swelling and redness in nose since past 3 days. Patient reports that the pain and swelling started gradually and has been progressively worsening. Patient states that 3 days ago, he plucked aleft nose hair and it started as a little swelling after that but since this morning, it seemed like his nose was going to explode. We will admit the patient on general medicine floor to treat for nasal vestibulitis. Nasal vestibulitis: -Possibly nasal abscess. -Warm compressions -Head elevation -We will continue IV Unasyn day 3. -We will follow ENT recommendations -Pain management History of restless leg syndrome and osteoarthritis; -Continue home medications DVT prophylaxis: Mechanical and Lovenox CODE STATUS: Full code Problem List: 1. Abscess Pain Ratin Pain Location: none Pain Goal: Remain pain free Pain Plan: pain pathway Tomorrow's Labs & Rationales: cbc/bep
[2017-06-01 08:53] LABS: ABSOLUTE BASOPHIL COUNT 0 /CUMM (0.0-0.2); ABSOLUTE EOSINOPHIL COUNT 0.2 /CUMM (0.0-0.7); ABSOLUTE GRANULOCYTE CT 4.4 /CUMM (1.4-6.5); ABSOLUTE LYMPH COUNT 1.5 /CUMM (1.2-3.4); ABSOLUTE MONOCYTE COUNT 0.6 /CUMM (0.10-0.60); BASOPHIL % 0.4 % (0.0-2.0); EOSINOPHIL % 2.3 % (0-5); HEMATOCRIT 33.6 % (42-52); MEAN CORPUSCULAR HGB 27.2 PG (27.0-31.0); MEAN CORPUSCULAR HGB CONC 33.4 G/DL (33.0-37.0); MEAN CORPUSCULAR VOLUME 81.5 FL (80.0-94.0); PLATELET COUNT 253 /CUMM (130-400); RBC DISTRIBUTION WIDTH 14.1 % (11.5-14.5); RED BLOOD CELL CT 4.12 /CUMM (4.70-6.10); WHITE BLOOD CELL COUNT 6.7 /CUMM (4.8-10.8)
[2017-06-01] MEDS ORDERED: AUGMENTIN 875-1 EACH PO (11:58)
--- NOTE | 2017-06-01 12:04 | Patient Discharge Instructions ---
Discharge Instructions General Discharge Information You were seen/treated for: Nasal abscess Nasal Vestibulitis Watch for these problems: Bleeding from nose, fever, chills, headache, altered mental status and redness, swelling on the face. If you experiences any of these symptoms face come to ED or call your primary care physician. Special Instructions: Follow the primary care physician in one week. Follow-up with ENT doctor in 1 week. Diet Recommended Diet: Regular Activity Activity Self Limited: Yes Acute Coronary Syndrome Inclusion Criteria At DC or during hospital stay patient has or had the following: ACS DIAGNOSIS No Discharge Core Measures Meds if any: Prescribed or Continued at Discharge Meds if any: NOT Prescribed or Continued at Discharge Congestive Heart Failure Inclusion Criteria At DC or during hospital stay patient has or had the following: CHF DIAGNOSIS No Discharge Core Measures Meds if any: Prescribed or Continued at Discharge Meds if any: NOT Prescribed or Continued at Discharge Cerebrovascular accident Inclusion Criteria At DC or during hospital stay patient has or had the following: CVA/TIA Diagnosis No Discharge Core Measures Meds if any: Prescribed or Continued at Discharge Meds if any: NOT Prescribed or Continued at Discharge Venous thromboembolism Inclusion Criteria VTE Diagnosis No VTE Type NONE VTE Confirmed by (Test) NONE Discharge Core Measures - Per Current guidelines, there needs to be overlap - treatment for the first 5 days of Warfarin therapy. - If discharged on Warfarin prior to 5 days of - overlap therapy, the patient will need to be - assessed for post discharge needs including - *Post discharge parental anticoagulation - *Warfarin and/or parental anticoagulation education - *Follow up date to check INR post discharge At least 5 days overlap therapy as Inpatient No Meds if any: Prescribed or Continued at Discharge Note: Overlap Therapy is Warfarin and Anticoagulant Meds if any: NOT Prescribed or Continued at Discharge
[2017-06-01 13:41] VITALS: BP 168/86
== END 2017-06-01 17:37 | DRG 156 ==
LOC: ERH 08:31 → ERHI 12:42 → 2NB 12:42 → ENRESERV 14:06 → ENTRNSPT 16:05 → EDTRNSPTSTS 16:25 → 2NB 16:32 → CMPTRNSPT 16:45 → ENTRNSPT 06-01 17:13 → 2NB 06-01 17:37 → CMPTRNSPT 06-01 17:38
PROVIDERS: Internal Medicine; Physician Assistant; Student in an Organized Health Care Education/Training Program
DX: J34.0 Abscess, furuncle and carbuncle of nose (principal); G25.81 Restless legs syndrome; M19.90 Unspecified osteoarthritis, unspecified site; J34.89 Other specified disorders of nose and nasal sinuses; Z91.011 Allergy to milk products; Z79.891 Long term (current) use of opiate analgesic; G47.9 Sleep disorder, unspecified
CPT/HCPCS: 2NBP; 36415; 82436; 87040; 93005; 93010; 96374; 96375; 96376; J1650; J1885; J2405; J3101